=== PATIENT | female | born 1990 | race Hispanic/Latino ===

== ENCOUNTER 2017-08-30 22:37 | Inpatient (IN) | payer OTHER, SELFPAY ==
--- NOTE | 2017-08-30 23:29 | PDOC.LDHP ---
Labor and Delivery H&P HPI: 08/30/17 at 2327: 27 yo prior CS X [address] Lopes, here at 38 weeks 6 days for irregular contrcations. No VB, no LOF. She states she is scheduled for repeat CS at another hospital. Denies any other issues. Good FM. No PIH sxs. Current gestational age (weeks): 38 (6 days) Dating criteria: last menstrual period Grav: 3 Para: 1 Current complications: none Abnormal US findings: No Current medications: none Previous surgical history: low tranverse CS Allergies/Adverse Reactions: Allergies Allergy/AdvReac Type Severity Reaction Status Date / Time No Known Allergies Allergy Verified 08/30/17 23:31 - Physical Exam Vital signs reviewed and normal: yes General: NAD Heart: RRR Lungs: CTAB Abdomen: gravid Extremeties: no edema FHT: category 1 - Vaginal Exam cm dilated: 1 Effacement: 75% Station: -1 - Assessment Prior CS in latent labor, at term. Patient of Dr lopes. Dr Lopes notiifed by me 5 minutes ago...awaiting his response. - Plan Plan: observation in L&D, other (Dr Lopes contacted, awaiting response. @[id number]: Dr Lopes responded: He has assigned the patient to the OBGYN hospitalist group. We will admit. We will give IVF hydration and plan for repeat CS tomorrow AM or tonight if feasable.)
[2017-08-30] MEDS ORDERED: Lactated Ringer's 1,000 ML IV SCH ×2 (23:45)
[2017-08-30] MEDS ORDERED: Bicitra 30 ML UDCUP PO SCH (23:45)
[2017-08-30] MEDS ORDERED: CEFAZOLIN/Water 2 GM/20 ML SYRINGE SLOW IVP SCH (23:45)
[2017-08-30] MEDS ORDERED: Promethazine HCl 25 MG/ML VIAL IM/IV PRN (23:56)
[2017-08-31 00:18] VITALS: BMI 26.2
[2017-08-31 00:32] LABS: #Eosinphils 0.3 thou/uL (0.0-0.7); #Lymphocytes 2.3 thou/uL (1.20-3.40); #Monocytes 0.7 thou/uL (0.11-0.59); #Neutrophils 7.6 thou/uL (1.40-6.50); %Basophils 0.3 % (0.0-1.0); %Eosinophils 2.5 % (0.0-10.0); %Lymphocytes 21.3 % (21.0-51.0); %Monocytes 6.4 % (0.0-10.0); Hematocrit 41.6 % (36.0-47.0); Mean Platelet Volume 9.2 fL (7.4-10.4); Red Blood Cell (RBC) Count 4.82 mill/uL (4.20-5.40)
[2017-08-31] MEDS ORDERED: Terbutaline Sulfate 1 MG/ML VIAL ONE (04:51)
[2017-08-31] MEDS ORDERED: Terbutaline Sulfate 1 MG/ML VIAL SC SCH (05:00)
[2017-08-31 09:08] VITALS: TEMP 98.4
--- NOTE | 2017-08-31 09:57 | PDOC.EVN ---
Event Note - Event Note Event Note: Patient re-assessed at 0830 and 0930 S: Uncomfortable contractions q3-15 minutes but able to talk and walk through without difficulty. No other complaints at this time. Denies LOF, vaginal bleeding, dysuria. O: BP 111/70 P93 R 18 T 98.4 SVE: 2/75/-2, unchanged from last check FHT: 140/mod/+accel/no decel [place]: Uterine irritability, contractions picked up q3-10+ min BPP: 05/18, SANTOS 11, Fundal/posterior placenta, pending final read A/P: 27 yo at 38.0w, h/o C/S x1 for failure to dilate, presented with contractions without cervical change 1. Scheduled for repeat C/S 09/[address] [facility] 2. Discussed with patient no indication for urgent repeat C/S at this moment and she would like to consider vs. repeat C/S as is already scheduled 3. Labor precautions and kick count instructions given 4. Follow-up appointment with Dr. Lopes this afternoon <Riddhi Peraza - Last Filed: 08/31/17 10:11> Attending Addendum - Attending Addendum I personally evaluated the patient and discussed the management with Dr. Peraza. No evidence of active labor and status reassuring with BPP of 05/18. Since the patient is only 38 weeks, she was discharged to follow up with Dr. Lopes this afternoon. <Ciera Gilliland - Last Filed: 08/31/17 11:14>
--- NOTE | 2017-08-31 10:31 | ULT ---
BIOPHYSICAL PROFILE: HISTORY: A 27-year-old female with nonreactive NST. FINDINGS: A single viable intrauterine fetus is noted in cephalic presentation. Amniotic fluid is within abdirizak l limits with an SANTOS of 11.1 cm. tone, breathing, and movements were evaluated as well as amniotic fluid. bio physical profile score normal 8/8. heart rate 130 b.p.m. IMPRESSION: Biophysical profile score 8/8. Normal. POS: [facility]
== END 2017-08-31 09:58 | disposition home or self-care (01) | DRG 780 ==
LOC: L&D/OP 22:37 → L&D 08-31 00:08
PROVIDERS: ADMIT Family Medicine; ATTEND Family Medicine
DX: O47.1 False labor at or after 37 completed weeks of gestation (principal); Z3A.38 38 weeks gestation of pregnancy
CPT/HCPCS: 36415; 36416; 76819; 85025; 86780; 86850; 86900; 86901; 87340; J0595; J3105

== ENCOUNTER 2018-01-01 07:12 | Emergency (ER) | payer SELFPAY ==
[2018-01-01 08:09] LABS: Bilirubin Negative (Negative); Blood, Urine Negative (Negative); Glucose, Urine (Dipstick) Negative (Negative); Leukocyte Negative (Negative); Nitrite Negative (Negative); Protein, Urine (Dipstick) Negative (Neg-Trace); Urobilinogen 0.2 mg/dL (0.2-1.0); pH, Urine 6.5 (5.0-9.0)
[2018-01-01 08:12] LABS: Clarity Clear (Clear); Specific Gravity, Urine 1.008 (1.002-1.036)
[2018-01-01 08:13] LABS: Pregnancy Test - Urine (BHCG) Negative (Negative); Pregu Control Background? CLEAR/WHITE (CLR/WHITE); Pregu Control Bar Appear? YES (CONTROL BAR); Specific Gravity 1.008 (1.002-1.036)
[2018-01-01 08:49] LABS: #Lymphocytes 1.2 thou/uL (1.20-3.40); #Monocytes 0.4 thou/uL (0.11-0.59); #Neutrophils 10.5 thou/uL (1.40-6.50); %Basophils 0.1 % (0.0-1.0); %Eosinophils 0.2 % (0.0-10.0); %Lymphocytes 9.7 % (21.0-51.0); %Monocytes 3.1 % (0.0-10.0); %Neutrophils 86.9 % (42.0-75.0); Hemoglobin 15.1 g/dL (12.0-16.0); Mean Corpuscular HGB CONC 33.4 g/dL (32.0-36.0); Mean Corpuscular Hemoglobin 28.8 pg (27.0-31.0); Mean Corpuscular Volume 86.2 fl (81.0-99.0); Mean Platelet Volume 7.9 fL (7.4-10.4); Platelet Count 274 thou/uL (130-400); RBC Distribution Width 11.9 % (11.5-14.5); Red Blood Cell (RBC) Count 5.23 mill/uL (4.20-5.40); White Blood Cell (WBC) Count 12.1 thou/uL (4.8-10.8)
[2018-01-01 09:06] LABS: ALT (SGPT) 16 U/L (8-55); AST (SGOT) 13 U/L (5-34); Albumin 4.7 g/dL (3.5-5.0); Alkaline Phosphatase 147 U/L (40-150); Anion Gap 11 mmol/L (10-20); BUN (Urea Nitrogen) 9 mg/dL (7.0-18.7); Bilirubin, Total 0.5 mg/dL (0.2-1.2); Calc. Creatinine Clearance 0 mL/min (70-130); Calcium 9.9 mg/dL (7.8-10.44); Carbon Dioxide 24 mmol/L (22-29); Chloride 107 mmol/L (98-107); Estimated GFR-MDRD Greater than 90; Globulin 3.3 g/dL (2.4-3.5); Glucose 116 mg/dL (70-105); Lipase 8 U/L (8-78); Potassium 3.4 mmol/L (3.5-5.1); Sodium 139 mmol/L (136-145)
--- NOTE | 2018-01-01 09:29 | CT ---
CT ABDOMEN AND PELVIS WITHOUT CONTRAST: Date: 01/01/18 PROVIDED CLINICAL HISTORY: Difficulty urinating with suprapubic and bilateral flank pain. FINDINGS: No comparisons. The visualized lung bases are free of significant opacity. The solid abdominal organs are suboptimally evaluated without IV contrast, but demonstrate an unremar kable unenhanced CT appearance. No evidence for urinary tract calculi or hydronephrosis. There is conspicuous distention of the urinary bladder. There is conspicuous rectal and sigmoid colon ic fecal retention. There is no bowel dilatation, inflammatory fat stranding, free fluid, or free air apparent. No findin gs to suggest appendicitis. The osseous structures demonstrate no concerning osteoblastic or osteolytic lesions. IMPRESSION: 1. No evidence for urinary tract calculi or hydronephrosis. 2. Conspicuous distention of the urinary bladder. 3. Conspicuous rectal and sigmoid colonic fecal retention. POS: [facility]
== END 2018-01-01 10:30 | disposition home or self-care (01) ==
LOC: ERS 07:12
DX: K59.00 Constipation, unspecified (principal); R33.9 Retention of urine, unspecified
CPT/HCPCS: 36415; 51701; 74176; 80053; 81003; 81025; 83690; 85025; A4353